=== PATIENT | male | born 1995 | race African-American/Black ===

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

== ENCOUNTER 2017-05-08 15:11 | Emergency (ER) | payer SELFPAY ==
[~2017-05-08] VITALS: Ht 175.3 cm; Wt 95.5 kg
[~2017-05-08 15:11] MED LIST: BACT800T5 PO; DIFL150T PO; KETO2CRE TOPICAL
[2017-05-08 15:13] VITALS: BP 145/65; PULSE 84; RESP 15; TEMP 98.1; O2SAT 99
--- NOTE | 2017-05-08 16:17 | PD ---
HPI Chief Complaint: GI Complaint Time Seen by Provider: 16:01 Travel History International Travel<30 days: No Contact w/Intl Traveler<30days: No Traveled to known affect area: No History of Present Illness HPI The patient is a 21-year-old [place] male who presents to the emergency department for perirectal pain and bright red bleeding. The patient notes a 3 to four-day history of perirectal pain, states he has blood when he has a bowel movement as well as when he wipes with tissue paper. Have a history of external hemorrhoids with similar symptoms. He has been using Tucks with minimal relief of his symptoms. He denies any pain with defecation. He denies any nausea, vomiting, or abdominal pain. Symptoms are mild to moderate. PFSH Past Medical History Asthma: Yes Diminished Hearing: No Tetanus Vaccination: > 5 Years Influenza Vaccination: No Past Surgical History Surgical History: No Previous Surgery Social History Alcohol Use: Yes (on occasion) Tobacco Use: No Substance Use: Yes (marijuana) Allergies-Medications (Allergen,Severity, Reaction): Coded Allergies: amoxicillin (Unverified Allergy, Mild, Rash, 05/08/17) clavulanic acid (Unverified Allergy, Mild, Rash, 05/08/17) Reported Meds & Prescriptions Reported Meds & Active Scripts Active No Active Prescriptions or Reported Medications Review of Systems Except as stated in HPI: all other systems reviewed are Neg General / Constitutional: No: Fever Gastrointestinal: Positive: Hematochezia, Other (as noted in history of present illness), No: Nausea, Vomiting, Diarrhea, Abdominal Pain Skin: Positive Other (history of external hemorrhoids) Physical Exam Narrative GENERAL: Awake, alert, pleasant 21-year-old male who appears his stated age and is in no acute respiratory distress. SKIN: Focused skin assessment warm/dry. HEAD: Atraumatic. Normocephalic. EYES: No injection or drainage. GASTROINTESTINAL: Abdomen soft, non-tender, nondistended. No rebound tennis, guarding, rigidity. Rectal: Patient has an external hemorrhoid at the 4 o'clock position. Thrombosis noted. MUSCULOSKELETAL: No obvious deformities. No clubbing. No cyanosis. No edema. NEUROLOGICAL: Awake and alert. No obvious cranial nerve deficits. Motor grossly within normal limits. Normal speech. PSYCHIATRIC: Appropriate mood and affect; insight and judgment normal. Data Data Last Documented VS Vital Signs Date Time Temp Pulse Resp B/P (MAP) Pulse Ox O2 Delivery O2 Flow Rate FiO2 05/08/17 15:13 98.1 84 15 145/65 (91) 99 Orders Orders Acetamin-Hydrocod 325-5 Mg (Lindsay 5-325 (05/08/17 16:30) [facility] Medical Decision Making Medical Screen Exam Complete: Yes Emergency Medical Condition: Yes Medical Record Reviewed: Yes Differential Diagnosis Differential diagnosis includes external hemorrhoid, internal hemorrhoid, anal fissure, diverticulosis, perirectal abscess. Narrative Course Physical examination reveals an external hemorrhoid. The patient will be placed on Anusol and Lindsay. He is advised to follow-up with his primary physician and if symptoms persist gastroenterology. Patient is stable for outpatient follow-up. Diagnosis Primary Impression: External hemorrhoid Patient Instructions: General Instructions Additional Instructions: Medications as directed. Follow-up with her primary physician. Follow-up with gastroenterology if symptoms persist. [id number] Tucks pads. Sitz baths as needed. Med/Other Pt SpecificInfo: Prescription(s) given Scripts Hydrocortisone Rectal (Anusol-Hc Rectal) 2.5% Cream 1 APPLIC RECTAL Q6H Y for ITCHING/INFLAMMATION, #30 GM 0 Refills Prov: Gildardo Madera MD 05/08/17 Hydrocodone-Acetaminophen (Lindsay) 5 Mg-325 Mg Tab 1 TAB PO Q6H Y for PAIN, #12 TAB 0 Refills Prov: Gildardo Madera MD 05/08/17 Disposition: 01 DISCHARGE HOME Condition: Stable Gildardo Madera MD May 08, 2017 16:17
[2017-05-08] MEDS ORDERED: ACETAMINOPHEN/HYDROcodone 325 MG/5 MG TAB PO ONE (16:30)
[2017-05-08] MEDS ORDERED: HYDR2.5%T RECTAL (16:32)
[2017-05-08] MEDS ORDERED: NORC5TAB PO (16:32)
== END 2017-05-08 17:03 | disposition home or self-care (01) ==
LOC: NEPD 15:11
DX: K64.4 Residual hemorrhoidal skin tags (principal)
CPT/HCPCS: 99283

== ENCOUNTER 2017-05-26 16:25 | Emergency (ER) | payer SELFPAY ==
[~2017-05-26] VITALS: Ht 175.3 cm; Wt 80.0 kg
[~2017-05-26 16:25] MED LIST changes: -BACT800T5 PO; -DIFL150T PO; +HYDR2.5%T RECTAL; -KETO2CRE TOPICAL; +NORC5TAB PO
--- NOTE | 2017-05-26 17:57 | PD ---
HPI Chief Complaint: Cold / Flu Symptoms Time Seen by Provider: 17:43 Travel History International Travel<30 days: No Contact w/Intl Traveler<30days: No Traveled to known affect area: No History of Present Illness HPI Patient comes emerge department complaining of cold-like symptoms began more than 3 days ago. Patient reports he started off with rhinorrhea, which resolved and started developing a cough and sore throat. Patient's cough is occasionally productive with yellow phlegm. Reports throat is scratchy burning- like pain without radiation. Pain is worse with swallowing. Patient is been using cough drops for symptomatic relief that seemed to help some. Reports today started having chills. Patient reports he was around his cousin who had a cold, but denies any other known sick contacts. PFSH Past Medical History Asthma: Yes Diminished Hearing: No Social History Alcohol Use: Yes (on occasion) Tobacco Use: No Substance Use: Yes (marijuana) Allergies-Medications (Allergen,Severity, Reaction): Coded Allergies: amoxicillin (Unverified Allergy, Mild, Rash, 05/08/17) clavulanic acid (Unverified Allergy, Mild, Rash, 05/08/17) Reported Meds & Prescriptions Reported Meds & Active Scripts Active Zithromax (Azithromycin) 500 Mg Tab 500 Mg PO DAILY 5 Days Anusol-Hc Rectal (Hydrocortisone Rectal) 2.5% Cream 1 Applic RECTAL Q6H PRN [place] (Hydrocodone-Acetaminophen) 5 Mg-325 Mg Tab 1 Tab PO Q6H PRN Review of Systems Except as stated in HPI: all other systems reviewed are Neg Physical Exam Narrative GENERAL: Well-developed, well nourished, in no acute distress, and non-ill appearing. SKIN: Focused skin assessment warm and dry. HEAD: Atraumatic. Normocephalic. EYES: Pupils equal and round. EOMI. No scleral icterus. No injection or drainage. ENT: No nasal bleeding or discharge. Mucous membranes pink and moist. Tympanic membranes pearly glaser bilaterally. Posterior pharynx mildly erythematous with exudate. Tonsils are mildly edematous, erythematous, and wears exudate. Uvula is midline. No tenderness to facial sinuses to palpation. NECK: Trachea midline. No cervical lymphadenopathy. Supple. No nuclear rigidity. CARDIOVASCULAR: Regular rate and rhythm. No murmur appreciated. RESPIRATORY: No accessory muscle use. No respiratory distress. Clear to auscultation. Breath sounds equal bilaterally. MUSCULOSKELETAL: No obvious deformities. No clubbing. No cyanosis. No edema. Full range of motion. NEUROLOGICAL: Awake and alert. No obvious cranial nerve deficits. Motor grossly within normal limits. Normal speech. PSYCHIATRIC: Appropriate mood and affect; insight and judgment normal. Data Data Orders Orders Group A Rapid Strep Screen (05/26/17 17:29) Chest, Single Ap (05/26/17 ) Strep Culture (Group A) (05/26/17 17:30) Ed Discharge Order (05/26/17 19:12) MDM Medical Decision Making Medical Screen Exam Complete: Yes Emergency Medical Condition: Yes Differential Diagnosis Strep pharyngitis, viral pharyngitis, pneumonia, URI, tonsillitis, viral syndrome Narrative Course Patient looks great, non-ill appearing. The patient is tolerating fluids and is well hydrated. Appears tonsillitis. No clinical evidence by history or evaluation to suspect meningitis and/or sepsis. There was no evidence to suggest peritonsillar abscess or retropharyngeal abscess. I discussed with the patient, diagnosis, plan of care and to follow up with the patients primary physician and/or ENT. The patient was given antibiotics. The patient was instructed to return if the worsens in anyway, especially if not tolerating fluids, increased pain or swelling, difficulty swallowing or breathing, or as needed. The patient agreed with plan. Patient in no obvious distress upon re-evaluation. All pertinent laboratory/ Radiology result(s) discussed with patient. Patient was asked if they wanted to speak to my attending, which the patient did not wish to do at this time. Any questions/concerns in reference to patient diagnosis/condition discussed and clarified prior to patient's discharge. Reinforced sheer importance of close follow up with patient's primary physician or primary care clinic and/or ENT. Instructed patient to return to ED immediately, if symptoms return/worsen. Patient showed understanding of above instructions. Further instructions and recommendations were detailed in discharge paperwork. Patient ambulated without difficulty out of ED at discharge. Diagnosis Primary Impression: Tonsillitis with exudate Referrals: Mandeep Cast MD [facility] Patient Instructions: General Instructions, Tonsillitis (ED) Additional Instructions: Follow-up with your primary care physician and/or ENT in 3-5 days for reevaluation. Take all medication as prescribed. Use [id number] Tylenol or ibuprofen as needed for pain and/or fever control. Follow instructions on the packaging. Drink plenty of non-caffeinated and nonalcoholic fluids. Gargle with warm salt water gargles for symptomatic relief. Do not swallow salt water. Return to the emergency department if symptoms get worse. Med/Other Pt SpecificInfo: Prescription(s) given Scripts Azithromycin (Zithromax) 500 Mg Tab 500 MG PO DAILY for Infection for 5 Days, #5 TAB 0 Refills Prov: Pastor Pabon MD 05/26/17 Disposition: 01 DISCHARGE HOME Condition: Stable Joaquin Chan May 26, 2017 17:57
--- NOTE | 2017-05-26 18:27 | RADRPT ---
EXAM DATE/TIME: 05/26/2017 17:57 [facility] COMPARISON: No previous studies available for comparison. INDICATIONS : Cough MEDICAL HISTORY : None. SURGICAL HISTORY : None. ENCOUNTER: Initial ACUITY: 3 days PAIN SCORE: 0/10 LOCATION: chest FINDINGS: A single view of the chest demonstrates the lungs to be symmetrically aerated without evidence of mas s, infiltrate or effusion. The cardiomediastinal contours are unremarkable. Osseous structures are intact. CONCLUSION: The lungs are clear. Mohinder Carrasco MD on May 26, 2017 at 18:25 Board Certified Radiologist. This report was verified electronically.
[2017-05-26] MEDS ORDERED: ZITH500T PO (19:12)
== END 2017-05-26 19:34 | disposition home or self-care (01) ==
LOC: NEPK 16:25
DX: J45.909 Unspecified asthma, uncomplicated (principal); F12.90 Cannabis use, unspecified, uncomplicated; J03.90 Acute tonsillitis, unspecified
CPT/HCPCS: 71045; 87081; 87880; 99284